=== PATIENT | male | born 1970 | race Asian ===

== ENCOUNTER → 2018-10-24 08:10 | Outpatient (CLI) | payer OTHER, SELFPAY ==
--- NOTE | 2018-10-24 | DI.MRI.S_ITS ---
PROCEDURE: MR ANKLE RT WO CON INDICATIONS: PAIN IN RIGHT ANKLE TECHNIQUE: Noncontrast sagittal T1 spin echo and T2 fast spin echo with fat saturation, axial proton density fast spin echo and T2 fast spin echo with fat saturation, coronal T1 spin echo and T2 fast spin echo with fat saturation through the ankle/hindfoot. COMPARISON: None. FINDINGS: Image quality: Excellent. Bones and joints: No bone marrow contusions or fractures. Type II accessory navicular bone noted. Degenerative changes noted at the accessory navicular bone synchondrosis. No hindfoot coalitions. No osteochondral injuries of the talar dome. Tibiotalar joint effusion is noted. Plantar calcaneal bone spurring is noted. Mild dorsal midfoot bone spurring noted.. Medial structures: The posterior tibialis, flexor digitorum longus, and flexor hallucis longus tendons are intact. The posterior tibial neurovascular bundle appears normal within the tarsal tunnel, without extrinsic mass effect. The deep layer (anterior and posterior tibiotalar ligaments) and superficial layer (tibionavicular, tibiospring, and tibiocalcaneal ligaments) of the deltoid ligament appear normal. The spring ligament components (superomedial calcaneonavicular, medioplantar oblique calcaneonavicular, and inferoplantar longitudinal ligaments) are intact. Lateral structures: The anterior talofibular, calcaneofibular, and posterior talofibular ligaments appear intact. More superiorly, the anterior and posterior tibiofibular ligaments appear intact, as is the intermalleolar ligament. The tibiofibular syndesmosis is normal in width at 2 mm or less. The peroneus longus and brevis tendons demonstrate normal location. The peroneal longus tendon is slightly thickened with mildly increased internal signal compatible with mild tendinosis. Adjacent bony peroneal tubercle and retrotrochlear prominence are normal in size. The sinus tarsi demonstrates normal fatty signal, without edema, fibrosis, or cyst formation. Visualized sinus tarsi components (cervical ligament, interosseous talocalcaneal ligament, roots of the inferior extensor retinaculum) appear normal. The calcaneonavicular and calcaneocuboid components of the bifurcate ligament appear intact. The dorsal calcaneocuboid ligament appears intact. Edema is noted in the lateral ankle soft tissues. Anterior structures: The tibialis anterior, extensor hallucis longus, and extensor digitorum longus tendons appear intact. The dorsal talonavicular ligament appears intact. Posterior and plantar structures: Achilles tendon is intact. Medial and lateral bands of the plantar fascia are of normal thickness. No abductor digiti quinti muscle atrophy to suggest Elizabeth neuropathy. IMPRESSION: 1. Nonspecific tibiotalar joint effusion. 2. Mild peroneal longus tendinosis. 3. 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 4. No ligament or tendon tear. Dictated by: Brandi Atwood MD, PhD on 10/24/2018 at 11:44 Approved by: Brandi Atwood MD, PhD on 10/25/2018 at 10:36
== END ==
PROVIDERS: Visit Provider Physician Assistant
DX: M25.571 Pain in right ankle and joints of right foot (principal); M25.471 Effusion, right ankle
CPT/HCPCS: 73721

== ENCOUNTER → 2020-06-17 13:30 | Outpatient (CLI) | payer OTHER, SELFPAY ==
[2020-06-17 14:59] LABS: Cholesterol 249 mg/dL (140-199); HDL Cholesterol 31 mg/dL (40-60); Triglycerides 467 mg/dL (35-150)
== END ==
PROVIDERS: PCP Student in an Organized Health Care Education/Training Program; Referring Provider Student in an Organized Health Care Education/Training Program; Visit Provider Student in an Organized Health Care Education/Training Program
DX: E78.5 Hyperlipidemia, unspecified (principal)
CPT/HCPCS: 36415; 80061

== ENCOUNTER → 2020-07-31 10:49 | Outpatient (CLI) | payer OTHER, SELFPAY ==
[2020-07-31 12:56] LABS: Cholesterol 188 mg/dL (140-199); HDL Cholesterol 33 mg/dL (40-60); LDL Cholesterol Calculated 114 mg/dL (<100); Triglycerides 206 mg/dL (35-150)
== END ==
PROVIDERS: PCP Student in an Organized Health Care Education/Training Program; Referring Provider Student in an Organized Health Care Education/Training Program; Visit Provider Student in an Organized Health Care Education/Training Program
DX: K64.9 Unspecified hemorrhoids (principal); E78.2 Mixed hyperlipidemia; Z80.0 Family history of malignant neoplasm of digestive organs
CPT/HCPCS: 36415; 80061

== ENCOUNTER → 2021-11-04 12:49 | Outpatient (CLI) | payer OTHER, SELFPAY ==
--- NOTE | 2021-11-04 12:51 | DI.RAD.S_ITS ---
PROCEDURE: XR WRIST LT MIN 3V INDICATIONS: wrist pain extending up the arm, L>R TECHNIQUE: 4 views of the wrist were acquired. COMPARISON: None. FINDINGS: Bones: No fractures or dislocations. The ulnar styloid process is absent possibly related to osseous erosion. Scaphoid view: Scaphoid is intact. Soft tissues: No suspicious soft tissue calcifications. IMPRESSION: No fracture. No acute osseous lesion. If symptoms and/or clinical suspicion for pathology persists, further assessment with repeat radiographs (7-10 days) or advanced imaging (e.g. CT, MRI or bone scan) should be considered. Dictated by: Brandi Atwood MD, PhD on 11/04/2021 at 15:09 Approved by: Brandi Atwood MD, PhD on 11/04/2021 at 15:10
--- NOTE | 2021-11-04 12:51 | DI.RAD.S_ITS ---
PROCEDURE: XR WRIST RT MIN 3V INDICATIONS: wrist pain extending up the arm, L>R TECHNIQUE: 4 views of the wrist were acquired. COMPARISON: None. FINDINGS: Bones: No fractures or dislocations. No suspicious bony lesions. Scaphoid view: Scaphoid is intact. Soft tissues: No suspicious soft tissue calcifications. IMPRESSION: No fracture. No acute osseous lesion. If symptoms and/or clinical suspicion for pathology persists, further assessment with repeat radiographs (7-10 days) or advanced imaging (e.g. CT, MRI or bone scan) should be considered. Dictated by: Brandi Atwood MD, PhD on 11/04/2021 at 15:14 Approved by: Brandi Atwood MD, PhD on 11/04/2021 at 15:14
== END ==
PROVIDERS: PCP Student in an Organized Health Care Education/Training Program; Referring Provider Family Medicine; Visit Provider Family Medicine
DX: G56.03 Carpal tunnel syndrome, bilateral upper limbs (principal)
CPT/HCPCS: 73110

== ENCOUNTER → 2022-01-09 10:28 | Outpatient (CLI) | payer OTHER, SELFPAY ==
[2022-01-09 11:08] LABS: COVID19 -Nasal RAPID Negative (Negative)
== END ==
PROVIDERS: PCP Student in an Organized Health Care Education/Training Program; Visit Provider Surgery
DX: Z20.822 Contact with and (suspected) exposure to COVID-19 (principal); Z01.812 Encounter for preprocedural laboratory examination
CPT/HCPCS: 87635; C9803

== ENCOUNTER 2022-01-10 11:18 | Day surgery (SDC) | payer OTHER, SELFPAY ==
[2022-01-10 11:33] VITALS: BMI 26.6
[2022-01-10 11:44] VITALS: BP 117/79; PULSE 80; RESP 16; TEMP 35.7; O2SAT 96
[2022-01-10] MEDS: LACTATED RINGERS 1,000 ML 200 ML IV (11:47)
--- NOTE | 2022-01-10 12:11 | PM.HP.1 ---
History of Present Illness History of Present Illness Date Patient Seen: 01/10/22 Time Patient Seen: 12:12 Chief complaint: SDC Narrative: The patient presents for colorectal screening. They have never had any previous examination for such. No personal or family history of colon cancer. On further history denies any recent gastrointestinal symptoms. No nausea, vomiting, abdominal pain, loss of appetite, unexplained weight loss, change in bowel habits, diarrhea, constipation, melena, hematochezia, or bright red blood per rectum. Patient History Medical History Cataracts, bilateral (~2008) Chicken pox (~1979) DIETARY SERVICES MANAGER (central serous retinopathy) (~2008) Deviated septum (~1997) Fractures (~1988) Headache (~2002) Hemorrhoid History of herpes zoster (~2016) Lumbosacral strain (~2009) Recurrent sinusitis (~2012) Right ankle sprain Sleep apnea (~2014) Surgical History Anesthesia Barn[place] teeth extracted (~1991) Family & Social History Family History Father History of heart disease Hyperlipidemia Mother Cancer Diabetes mellitus Hypertension Hyperlipidemia Grandfather History of heart disease Hypertension Grandfather Cancer Grandmother Diabetes mellitus Social History: household members spouse Tobacco & Substance use: Smoking Status Former smoker alcohol intake never Substance Use Type does not use Meds Home Medications and Allergies Home Medications Medication Instructions Recorded Confirmed Type naproxen 500 mg tablet 500 mg PO BID PRN pain #90 tabs 08/15/21 01/10/22 Rx simvastatin 40 mg tablet 40 mg PO BEDTIME #90 tabs 12/20/21 01/10/22 Rx Allergies Allergy/AdvReac Type Severity Reaction Status Date / Time No Known Drug Allergies Allergy Verified 01/10/22 11:32 Exam Vital Signs (past 8 hours): - 01/10/22 11:44 Temperature 96.2 F L Pulse Rate 80 Respiratory Rate 16 Blood Pressure 117/79 Pulse Oximetry 96 Oxygen Delivery Method Room Air Oxygen Delivery Method Room Air Narrative Exam Narrative: General adult male alert oriented no acute distress Chest nonlabored respiration Extremities warm well perfused Assessment & Plan Assessment & Plan narrative: The patient requires colorectal screening and colonoscopy is recommended. Technical details were discussed. Risks, benefits, alternatives explained. Risks including but not limited to myocardial infarction, aspiration, bleeding, pain, missed lesion, incomplete examination, need for further radiographic studies, colonic perforation, and need for major abdominal surgery were discussed. All questions were answered to their satisfaction, and they are in agreement with this plan. Time Spent With Patient Critical Care time: I spent a total of [] minutes of critical care time on this patient's care today; this time is exclusive of procedural time.
[2022-01-10] MEDS: MIDAZOLAM 5 MG/5 ML VIAL 4 MG IV (12:20)
[2022-01-10] MEDS: fentaNYL 250 MCG/5 ML INJ 100 MCG IV (12:20)
--- NOTE | 2022-01-10 12:37 | PM.OP.COLON ---
Operative Date/Time/Diagnoses Date of procedure: 01/10/22 Time of procedure: 12:37 Pre-op diagnosis: Screening colonoscopy Post-op diagnosis: same Procedure & Clinicians Study performed: Colonoscopy Same procedure as scheduled: Yes Indications: Screening Surgeon: Sohail Vargas Procedure Notes Procedure in detail: Medications: Conscious sedation using 4mg IV midazolam and 100mcg IV of fentanyl The history and physical was performed/updated and the patient is ASA class is 2. The procedure was discussed in detail with the patient. Potential risks complications including infection, bleeding, missed diagnosis, perforation, need for surgery, and were explained. Their questions were answered and informed consent was obtained. Patient was brought to the procedure room and placed standard monitoring equipment. The patient's vital signs were monitored continuously throughout the entire procedure. Prior to starting time-out was performed. The patient was placed in the left lateral recumbent position. Procedural sedation was administered. Examination began with a thorough inspection of the perianal area there was no evidence of fissures, fistulae, external hemorrhoids or cutaneous malignancy. The colonoscopy scope was then placed into the anal canal and was advanced to the cecum, which was identified by the ileocecal valve, the appendiceal orifice and the confluence of the taenia. The scope was then slowly withdrawn examining colon thoroughly in all directions, irrigating it of any residual stool. FINDINGS 1. Moderate diverticulosis 2. Internal hemorrhoids 3. No masses or polyps The patient tolerated the procedure well. They will be discharged once criteria are met. The prep was of good/excellent quality. The withdrawl time was * minutes. The sedation time was * minutes. Specimen(s): none sent Complications: none Impression: Normal colonoscopy Post-procedure Recommendations: High fiber diet Disposition: same day surgery
[2022-01-10 12:40] VITALS: BP 107/65; PULSE 70; RESP 15; TEMP 36.1; O2SAT 97
[2022-01-10 12:45] VITALS: BP 115/76; PULSE 79; RESP 14; O2SAT 97
[2022-01-10 12:50] VITALS: BP 112/78; PULSE 70; RESP 13; O2SAT 98
[2022-01-10 12:51] VITALS: BP 113/84; PULSE 66; RESP 14; O2SAT 97
== END 2022-01-10 13:25 | disposition home or self-care (01) ==
PROVIDERS: PCP Student in an Organized Health Care Education/Training Program; Referring Provider Surgery; Visit Provider Surgery
PROC: 0DJD8ZZ Inspection of Lower Intestinal Tract, Via Natural or Artificial Opening Endoscopic (ICD-10-PCS; CPT 45378; principal; 2022-01-10 12:45)
DX: Z12.11 Encounter for screening for malignant neoplasm of colon (principal); K57.30 Diverticulosis of large intestine without perforation or abscess without bleeding; K64.8 Other hemorrhoids
CPT/HCPCS: 45378; J2250; J3010

== ENCOUNTER → 2022-06-09 16:32 | Outpatient (CLI) | payer OTHER, SELFPAY ==
--- NOTE | 2022-06-09 16:38 | DI.RAD.S_ITS ---
PROCEDURE: XR CERVICAL SPINE 2V OR 3V INDICATIONS: possible radiculopathy TECHNIQUE: Three view(s) of the cervical spine were acquired. COMPARISON: None. FINDINGS: Bones: No fractures or dislocations to the C7 level. Trace anterolisthesis C5-6. Mild disc height loss posteriorly at C4-5 and C6-7. Small endplate spurs and uncovertebral joint hypertrophy at C6-7. There is a anterior bridging osteophyte at C2-3. Mild left-sided facet hypertrophy at C4-5. The lateral masses of C1 appear intact on the odontoid view. No suspicious bony lesions. Soft tissues: No prevertebral soft tissue swelling. IMPRESSION: 1. Mild disc, endplate, and facet joint changes as described. 2. No evidence of cervical spine injury. Dictated by: Sophia Aguiar M.D. on 06/09/2022 at 18:09 Approved by: Sophia Aguiar M.D. on 06/09/2022 at 18:11
--- NOTE | 2022-06-09 16:38 | DI.RAD.S_ITS ---
PROCEDURE: XR THORACIC SPINE 3V INDICATIONS: possible radiculopathy, no injury TECHNIQUE: 3 views of the thoracic spine were acquired. COMPARISON: None. FINDINGS: Bones: No fractures or dislocations. Disc spaces are normally maintained. No suspicious bony lesions. Eleven pairs of ribs are noted, and appear intact where visualized. Soft tissues: No paravertebral stripe thickening. IMPRESSION: 1. No vertebral body fractures. 2. No focal disc height loss visible. Dictated by: Sophia Aguiar M.D. on 06/09/2022 at 18:08 Approved by: Sophia Aguiar M.D. on 06/09/2022 at 18:09
== END ==
PROVIDERS: PCP Student in an Organized Health Care Education/Training Program; Referring Provider Student in an Organized Health Care Education/Training Program; Visit Provider Student in an Organized Health Care Education/Training Program
DX: M54.2 Cervicalgia (principal); M54.6 Pain in thoracic spine
CPT/HCPCS: 72040; 72072

== ENCOUNTER → 2022-12-13 07:11 | Outpatient (CLI) | payer OTHER, SELFPAY ==
[2022-12-13 08:46] LABS: Add Manual Diff / Slide Review NO; Basophils Absolute Auto 100 /uL (0-100); Eosinophils Absolute Auto 100 /uL (0-450); Eosinophils Percent Auto 2.1 % (2-4); Hematocrit 45.2 % (41-53); Hemoglobin 15.3 g/dL (13.5-17.5); Lymphocytes Absolute Auto 1700 /uL (1100-4500); Lymphocytes Percent Auto 27.4 % (25-40); Mean Corpuscular HGB Conc 33.8 % (30-36); Mean Corpuscular Hemoglobin 29.5 PG (26-34); Mean Corpuscular Volume 87.2 fL (80-100); Monocytes Absolute Auto 500 /uL (0-900); Monocytes Percent Auto 7.7 % (3-14); Neutrophils Absolute Auto 3800 /uL (1500-7000); Neutrophils Percent Auto 61.8 % (50-75); Platelet Count 257 X10^3/uL (150-400); Red Blood Cell Count 5.19 X10^6/uL (4.5-5.9); Red Cell Distribution Width 12.5 % (11.6-14.8); White Blood Cell Count 6.2 X10^3/uL (4.5-11.0)
[2022-12-13 08:53] LABS: Alanine Aminotransferase 41 IU/L (<50); Albumin 3.9 g/dL (3.5-5.0); Albumin Globulin Ratio 1.4 (1.0-2.8); Alkaline Phosphatase 73 U/L (38-126); Aspartate Aminotransferase 40 IU/L (17-59); BUN Creatinine Ratio 14.6 (6-22); Bilirubin Total 0.5 mg/dL (0.2-1.3); Blood Urea Nitrogen 12 mg/dL (9-20); Calcium 8.9 mg/dL (8.4-10.2); Carbon Dioxide 27 mmol/L (22-32); Chloride 104 mmol/L (98-107); Cholesterol 149 mg/dL (140-199); Estimated Glomerular Filt Rate > 60 mL/min (>60); Globulin 2.7 g/dL (1.7-4.1); Glucose 102 mg/dL (70-100); HDL Cholesterol 29 mg/dL (40-60); HEMOLYSIS < 15 (0-50); LDL Cholesterol Calculated 96 mg/dL (<100); Potassium 4.2 mmol/L (3.4-5.1); Sodium 138 mmol/L (137-145); Total Protein 6.6 g/dL (6.3-8.2); Triglycerides 120 mg/dL (35-150)
[2022-12-13 08:54] LABS: Appearance Urine UA CLEAR; Bilirubin Urine UA NEGATIVE (NEGATIVE); Color Urine UA YELLOW; Glucose Urine UA NEGATIVE (Negative); Ketones Urine UA NEGATIVE (NEGATIVE); Leukocyte Esterase Urine UA NEGATIVE (NEGATIVE); Nitrite Urine UA NEGATIVE (Negative); Occult Blood Urine UA NEGATIVE (Negative); Protein Urine UA NEGATIVE (Negative); Specific Gravity Urine UA 1.015 (1.000-1.035); Urobilinogen Urine UA 0.2 E.U./dL (0.2)
[2022-12-13 08:56] LABS: High Sensitivity CRP - Cardiac < 0.3 mg/L (1.0-3.0)
[2022-12-13 09:06] LABS: Bacteria Urine Occasional (0-1); RBC Urine 1-5/HPF (0-5/HPF); WBC Urine 1-5/HPF (0-5/HPF)
[2022-12-13 09:07] LABS: Culture Indicated Urine Cult Not Indicated; Squamous Epithelial Cell Urine 0-1 /HPF (0-5/HPF)
== END ==
PROVIDERS: PCP Pediatrics; Referring Provider Pediatrics; Visit Provider Pediatrics
DX: E78.5 Hyperlipidemia, unspecified; Z80.0 Family history of malignant neoplasm of digestive organs; Z12.5 Encounter for screening for malignant neoplasm of prostate
CPT/HCPCS: 36415; 80053; 80061; 81001; 85025; 86140; G0103

== ENCOUNTER → 2023-06-21 15:11 | Outpatient (CLI) | payer OTHER, SELFPAY | LOC: LAB 15:12 | PROVIDERS: PCP Family Medicine; Referring Provider Family Medicine; Visit Provider Family Medicine | DX: M25.561 Pain in right knee (principal); M25.562 Pain in left knee; M25.461 Effusion, right knee; M25.462 Effusion, left knee | CPT/HCPCS: 36415; 84550 ==

== ENCOUNTER → 2024-01-03 11:13 | Outpatient (CLI) | payer OTHER, SELFPAY ==
--- NOTE | 2024-01-03 11:16 | DI.RAD.S_ITS ---
PROCEDURE: XR HAND LT MIN 3V INDICATIONS: bilateral thumb pain TECHNIQUE: 3 views of the hand acquired. COMPARISON: None. FINDINGS: Bones: No acute fractures or dislocations. Carpal bones are normally aligned. No suspicious bony lesions. Moderate to severe joint space narrowing of the 1st carpometacarpal joint. There is mild joint space narrowing and small marginal osteophytes at the 2nd and 3rd metacarpophalangeal joints. Mild joint space narrowing in the interphalangeal joints throughout the fingers. Soft tissues: No suspicious soft tissue calcifications. IMPRESSION: Moderate to severe 1st carpometacarpal osteoarthrosis. Approved by: Rogers Amin M.D. on 01/04/2024 at 8:58
--- NOTE | 2024-01-03 11:16 | DI.RAD.S_ITS ---
PROCEDURE: XR HAND RT MIN 3V INDICATIONS: bilateral thumb pain TECHNIQUE: 3 views of the hand acquired. COMPARISON: None. FINDINGS: Bones: No acute fractures or dislocations. Carpal bones are normally aligned. No suspicious bony lesions. Moderate degenerative changes at the 1st carpometacarpal and 1st metacarpophalangeal joints. Mild scattered degenerative changes in the interphalangeal joints of the fingers and at the 2nd metacarpophalangeal joint. No definite osseous erosion. Soft tissues: No suspicious soft tissue calcifications. IMPRESSION: Moderate osteoarthrosis at the 1st carpometacarpal and 1st metacarpophalangeal joints. Approved by: Rogers Amin M.D. on 01/04/2024 at 9:11
--- NOTE | 2024-01-03 11:16 | DI.RAD.S_ITS ---
PROCEDURE: XR KNEE LT 3V INDICATIONS: bilateral knee pain TECHNIQUE: 3 views of the knee were acquired. COMPARISON: None. FINDINGS: Bones: No fractures or dislocations. No suspicious bony lesions. Mild tricompartmental marginal osteophytes are seen associated with relatively mild joint space narrowing. Small suprapatellar enthesophyte. Soft tissues: No joint effusion. No suspicious soft tissue calcifications. IMPRESSION: Mild tricompartmental osteoarthrosis. Approved by: Rogers Amin M.D. on 01/04/2024 at 9:11
--- NOTE | 2024-01-03 11:16 | DI.RAD.S_ITS ---
PROCEDURE: XR KNEE RT 3V INDICATIONS: bilateral knee pain TECHNIQUE: 3 views of the knee were acquired. COMPARISON: None. FINDINGS: Bones: No fractures or dislocations. No suspicious bony lesions. Mild marginal osteophyte formation is seen at the medial and lateral femorotibial compartments and the patellofemoral compartment associated with mild joint space narrowing. Small suprapatellar enthesophyte. Soft tissues: No joint effusion. No suspicious soft tissue calcifications. IMPRESSION: Mild tricompartmental osteoarthrosis. Approved by: Rogers Amin M.D. on 01/04/2024 at 9:12
[2024-01-03 12:20] LABS: Add Manual Diff / Slide Review NO; Basophils Absolute Auto 100 /uL (0-100); Basophils Percent Auto 1.1 % (0-2); Eosinophils Absolute Auto 100 /uL (0-450); Eosinophils Percent Auto 1.5 % (2-4); Hematocrit 46.3 % (41-53); Hemoglobin 15.6 g/dL (13.5-17.5); Lymphocytes Absolute Auto 1800 /uL (1100-4500); Lymphocytes Percent Auto 25.7 % (25-40); Mean Corpuscular HGB Conc 33.7 % (30-36); Mean Corpuscular Hemoglobin 29.6 PG (26-34); Mean Corpuscular Volume 87.7 fL (80-100); Monocytes Absolute Auto 600 /uL (0-900); Monocytes Percent Auto 8.5 % (3-14); Neutrophils Absolute Auto 4500 /uL (1500-7000); Neutrophils Percent Auto 63.2 % (50-75); Platelet Count 283 X10^3/uL (150-400); Red Blood Cell Count 5.28 X10^6/uL (4.5-5.9); Red Cell Distribution Width 12.7 % (11.6-14.8); White Blood Cell Count 7.1 X10^3/uL (4.5-11.0)
[2024-01-03 12:57] LABS: Alanine Aminotransferase 46 IU/L (<50); Albumin 4.4 g/dL (3.5-5.0); Albumin Globulin Ratio 1.5 (1.0-2.8); Alkaline Phosphatase 77 U/L (38-126); Aspartate Aminotransferase 46 IU/L (17-59); BUN Creatinine Ratio 10.8 (6-22); Bilirubin Total 0.8 mg/dL (0.2-1.3); Blood Urea Nitrogen 10 mg/dL (9-20); Carbon Dioxide 28 mmol/L (22-32); Chloride 105 mmol/L (98-107); Cholesterol 163 mg/dL (140-199); Estimated Glomerular Filt Rate > 60 mL/min (>60); Globulin 2.9 g/dL (1.7-4.1); Glucose 96 mg/dL (70-100); HDL Cholesterol 33 mg/dL (40-60); HEMOLYSIS < 15 (0-50); LDL Cholesterol Calculated 97 mg/dL (<100); Potassium 4.3 mmol/L (3.4-5.1); Sodium 138 mmol/L (137-145); Total Protein 7.3 g/dL (6.3-8.2); Triglycerides 167 mg/dL (35-150); Uric Acid 6.9 mg/dL (3.5-8.5)
[2024-01-03 13:21] LABS: Prostate Specific Antigen Scrn 0.447 ng/mL (0.1-4.0)
[2024-01-03 13:23] LABS: TSH w/ Reflex to FT4 0.73 uIU/mL (0.47-4.68)
[2024-01-05 06:10] LABS: Apolipoprotein B 93 mg/dL (<90)
== END ==
PROVIDERS: PCP Family Medicine; Referring Provider Family Medicine; Visit Provider Family Medicine
DX: G89.29 Other chronic pain (principal); M25.561 Pain in right knee; M25.562 Pain in left knee; M79.644 Pain in right finger(s); M79.645 Pain in left finger(s); G56.03 Carpal tunnel syndrome, bilateral upper limbs; M25.569 Pain in unspecified knee; E78.2 Mixed hyperlipidemia; Z12.5 Encounter for screening for malignant neoplasm of prostate
CPT/HCPCS: 36415; 73130; 73562; 80053; 80061; 82172; 84443; 84550; 85025; G0103

== ENCOUNTER 2024-02-28 13:45 | Outpatient (RCR) | payer OTHER, SELFPAY ==
--- NOTE | 2024-02-22 14:15 | OT.OP.EVAL ---
Visit Care Team Role Provider Type Luis Alfredo Turner MD Attending Provider Physician Family Provider Primary Care Provider Referring Provider Specialty: Family Practice Address: [address] [place] [address], [facility] Email: [email or web address] Occupational Therapy Initial Evaluation OT Outpatient Adult Evaluation Start: 02/26/24 09:17 Freq: Status: Active Protocol: Document 02/22/24 14:15 AMS (Rec: 02/26/24 09:34 AMS [id number]) General Information - Adult Visit Number 1/ Plan of Care Dates 02/22/24 - 04/04/24 Insurance Information Family Health Plan; PCP Luis Alfredo Turner MD; auth x 6 visits Visit Start Time 11:15 Visit Stop Time 12:00 Treatment Setting Outpatient Care Note Type Initial Evaluation Referring Physician Luis Alfredo Turner MD Reason for Referral Bilateral OA Identification Confirmed Yes Identification Confirmed By Self Goals Correction Goals 1. Leland will be modified independent with home exercise program utilizing provided written and/or visual instructions as needed. 2. Leland will be able to verbalize understanding of basic joint protection principles. Assessment/Plan Treatment Assessment Leland is 53 y.o.; right hand dominant; referred to outpatient OT by PCP, Luis Alfredo Turner MD, secondary to bilateral OA. Medical history is significant for arthritis, back/jaw pain, headaches, and bilateral carpal tunnel syndrome. He reported injury to his R distal UE in high school; thus, he ended up using his left hand more at that time; subsequently, he utilizes both hands quite effectively to complete daily/ work tasks. Leland is taking a medication for his high cholesterol; he is also taking a medication for pain/ inflammation (Naproxen). There is history of receiving outpatient services for bilateral hand pain 2 to 3 years ago at a clinic located in [place], [place]. He completed the whole body Pain Assessment Grid; he indicated 4 out of 10 on the pain scale relative to volar base of bilateral thumbs. L thumb/hand pain > R thumb/hand pain. He has a hand massager; he also has a therapy device w/ red/ blue light (essentially is heat therapy). 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 He has a referral for outpatient PT as well (knee). Denied use of splints/braces. Outpatient OT to address basic joint protection principles, discuss conservative methods of pain and swelling management, and light resistance strength training as tolerated. Home Exercise Program 02/22/24 = Instructed in bilateral self-myofascial thumb adductor release; rec hold for 20-30 sec and then switch. Rec daily and/or as needed. Discussed basic joint protection principles; avoiding sustained pinch, repetitive resisted pinch, and positions of joint deformity. Length of treatment (weeks) 6 Plan of Care Start Date 02/22/24 Plan of Care End Date 04/04/24 Treatment Frequency Once a Week Therapeutic Contents Active Range of Motion, Adaptive Equipment Education, Client Education,Functional Activities,Home Exercise Program,Joint Protection, Manual Therapy,Education, Neurodevelopment Treatment, Neuromuscular Re-Education, Self-Care,Stretching/ Flexibility Activities, Therapeutic Activities, Therapeutic Exercises, Modalities Modalities As Needed,As Prescribed Additional Types of Modalities Heat/Ice/Contrast Baths/ Paraffin/Ultrasound
--- NOTE | 2024-02-28 14:33 | OT.OP.DC ---
Visit Care Team Role Provider Type Luis Alfredo Turner MD Attending Provider Physician Family Provider Primary Care Provider Referring Provider Address: [address] [place] [address], [id number] Email: [email or web address] OT Outpatient OT Outpatient Adult Evaluation Start: 02/26/24 09:17 Freq: Status: Active Protocol: Document 02/22/24 14:15 AMS (Rec: 02/26/24 09:34 AMS [id number]) General Information - Adult Visit Information Visit Number / Plan of Care Dates 02/22/24 - 04/04/24 Insurance Information Family Health Plan; PCP Luis Alfredo Turner MD; auth x 6 visits Session Time Visit Start Time 11:15 Visit Stop Time 12:00 Setting Treatment Setting Outpatient Care Visit Type Note Type Initial Evaluation Referral Referring Physician Luis Alfredo Turner MD Reason for Referral Bilateral OA Identification Identification Confirmed Yes Identification Confirmed By Self Goals Technical Support Internship Goals Technical Support Internship Goals 1. Leland will be modified independent with home exercise program utilizing provided written and/or visual instructions as needed. 2. Leland will be able to verbalize understanding of basic joint protection principles. Assessment/Plan Assessment Treatment Assessment Leland is 53 y.o.; right hand dominant; referred to outpatient OT by PCP, Luis Alfredo Turner MD, secondary to bilateral OA. Medical history is significant for arthritis, back/jaw pain, headaches, and bilateral carpal tunnel syndrome. He reported injury to his R distal UE in high school; thus, he ended up using his left hand more at that time; subsequently, he utilizes both hands quite effectively to complete daily/ work tasks. Leland is taking a medication for his high cholesterol; he is also taking a medication for pain/ inflammation (Naproxen). There is history of receiving outpatient services for bilateral hand pain 2 to 3 years ago at a clinic located in [place], [place]. He completed the whole body Pain Assessment Grid; he indicated 4 out of 10 on the pain scale relative to volar base of bilateral thumbs. L thumb/hand pain > R thumb/hand pain. He has a hand massager; he also has a therapy device w/ red/ blue light (essentially is heat therapy). 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 He has a referral for outpatient PT as well (knee). Denied use of splints/braces. Outpatient OT to address basic joint protection principles, discuss conservative methods of pain and swelling management, and light resistance strength training as tolerated. Home Exercise Program 02/22/24 = Instructed in bilateral self-myofascial thumb adductor release; rec hold for 20-30 sec and then switch. Rec daily and/or as needed. Discussed basic joint protection principles; avoiding sustained pinch, repetitive resisted pinch, and positions of joint deformity. Plan Length of treatment (weeks) 6 Plan of Care Start Date 02/22/24 Plan of Care End Date 04/04/24 Treatment Frequency Once a Week Therapeutic Contents Active Range of Motion, Adaptive Equipment Education, Client Education,Functional Activities,Home Exercise Program,Joint Protection, Manual Therapy,Education, Neurodevelopment Treatment, Neuromuscular Re-Education, Self-Care,Stretching/ Flexibility Activities, Therapeutic Activities, Therapeutic Exercises, Modalities Modalities As Needed,As Prescribed Additional Types of Modalities Heat/Ice/Contrast Baths/ Paraffin/Ultrasound Functional Wrist/Hand Scan Hand Side Sensory Assessment Sensory Profile2 OT Outpatient Treatment Note - Adult Start: 02/26/24 09:17 Freq: Status: Active Protocol: Document 02/28/24 14:23 [facility] (Rec: 02/28/24 14:32 AMS [id number]) OT Outpatient Adult Treatment Note Session Time Visit Start Time 13:45 Visit Stop Time 15:15 Visit Information Visit Number 2/6 Plan of Care Dates 02/22/24 - 04/04/24 Insurance Information Family Health Plan; PCP Luis Alfredo Turner MD; auth x 6 visits Setting Treatment Setting Outpatient Care Visit Type Note Type Discharge Summary General Information General Information Leland is 53 y.o.; right hand dominant; referred to outpatient OT by PCP, Luis Alfredo Turner MD, secondary to bilateral OA. Medical history is significant for arthritis, back/jaw pain, headaches, and bilateral carpal tunnel syndrome. - Subjective Identification Type Name - Objective Objective Measurements Please refer to below for progress towards meeting established OT goals: Technical Support Internship Goals GOALS MET 02/28/24 Leland will be modified independent with home exercise program utilizing provided written and/or visual instructions as needed. Leland will be able to verbalize understanding of basic joint protection principles. - Exercises 1 Descriptor Home exercise program. Myofascial release/thumb adductor stretch. Light resistance exercises: thumb abduction, thumb extension w/ use of single rubberband. Written and visual instructions were provided for myofascial thumb adductor release/stretch, thumb abduction/thumb extension w/ light resistance w/ single rubberband, and tendon glide exercises. Also instructed in use of 2 small balls/practice golf balls/golf balls in-hand manipulation exercises. Also recommended looking at [employer] website. - Assessment Assessment of Improvement Von denied need for additional visits; he denied questions regarding home exercise program. Written/visual instructions for home exercise program to be scanned into EMR. Rec following-up w/ PT in re: R knee rehab. - Plan Therapy Recommendations Discharge from Occupational Therapy
== END 2024-03-04 12:58 | disposition home or self-care (01) ==
LOC: OT 13:45
PROVIDERS: Family Provider Family Medicine; PCP Family Medicine; Referring Provider Family Medicine; Visit Provider Family Medicine
DX: M19.041 Primary osteoarthritis, right hand (principal); M19.042 Primary osteoarthritis, left hand
CPT/HCPCS: 97110; 97165

== ENCOUNTER 2024-05-01 13:00 | Outpatient (RCR) | payer OTHER, SELFPAY ==
--- NOTE | 2024-03-17 14:51 | PT.OIE ---
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) Dermatitis Deviated septum (~1997) Family history of coronary artery disease Fractures (~1988) Headache (~2002) Hemorrhoid History of herpes zoster (~2016) Lumbosacral strain (~2009) Recurrent sinusitis (~2012) Right ankle sprain Sleep apnea (~2014) Past Surgical History (Last Reviewed 06/09/22 @ 19:36 by Rakel Herrera PA-C) Anesthesia [place] teeth extracted (~1991) Visit Care Team Role Provider Type Luis Alfredo Turner MD Attending Provider Physician Family Provider Primary Care Provider Referring Provider Specialty: Family Practice Address: [address] [place] [address], [facility] Email: [email or web address] Physical Therapy Initial Evaluation PT-OP-A Visit Information Start: 03/17/24 09:55 Freq: Status: Active Protocol: Document 03/17/24 11:29 NM (Rec: 03/17/24 12:27 NM [id number]) Out-Patient Physical Therapy Visit Information Visit Information Visit Type Initial Evaluation Visit Note 6 visits approved initially Visit Start Time 11:32 Visit Stop Time 12:15 Visit Number 1 Evaluation Information Evaluation Date 03/17/24 Precautions Precautions PMH arthritis and back pain PT-OP-B Current Condition Start: 03/17/24 09:55 Freq: Status: Active Protocol: Document 03/17/24 11:29 NM (Rec: 03/17/24 12:27 NM [id number]) Current Condition History of Current Condition Onset Date chronic History of Current Condition Pt presents with B knee pain ( R>L). 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 Pt reports at least 8 years since has been out of active duty. He reports that he has not been active with exercise, but states hasn't been as active overall since pandemic. Reports pain with working out , yard work, knee flexion, sitting, stairs. Pt reports he slept wrong, so his back currently hurts; however, he states that his back does not normally hurt. Drove a lot this weekend, bothers him today. He reports no numbness or tingling in BLE; however, he does report mild occasional burning to R lateral ankle. Has not been referred to ortho . 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 PT-OP-C Subjective Start: 03/17/24 09:55 Freq: Status: Active Protocol: Document 03/17/24 11:29 NM (Rec: 03/17/24 12:27 NM [id number]) OP-PT Subjective Patient Comments Patient Comments pt consents to participate in initial evaluation Patient Questionnaires Lower Extremity Functional Scale LEFS Score 50/80 OP-PT Pain Assessment Location back Pain Location Details lumbar spine Intensity 6 Scale Used Numeric (0 - 10) Description Aching Frequency Occasional Radiating Location to R lateral hip and ankle Pain Aggravating Factors Position,Changing Position,ADL 's,Activity,Exercise,Standing, Bending,Lifting Pain Alleviating Factors Exercise L knee Pain Location Details medial knee Intensity 1 Scale Used Numeric (0 - 10) Description Aching Description- Other prn 2 Pain Aggravating Factors Activity,Exercise,Standing, Sitting,Walking,Stair Climbing Pain Alleviating Factors Heat,Medication Other Pain Alleviating Factors naproxen, red/blue light therapy R knee Pain Location Details medial knee Intensity 3 Scale Used Numeric (0 - 10) Description Aching,Dull Description- Other prn 5-6 Frequency Frequent Radiating Location worse throughout day Pain Aggravating Factors Exercise,Standing,Sitting, Walking,Stair Climbing Pain Alleviating Factors Heat,Medication Other Pain Alleviating Factors naproxen, red/blue light therapy PT-OP-F Manual Assessment Start: 10/07/24 09:55 Freq: Status: Active Protocol: Document 03/17/24 11:29 NM (Rec: 03/17/24 12:58 NM [id number]) Manual Assessments Soft Tissue Assessment Soft Tissue Mobility Assessment Tightness of B hamstrings and hip flexors, R>L. Increased tightness of B paraspinals Joint Mobility Assessment Joint Mobility Assessment Mild clicking at R knee with tibial rotation Hypomobility of lumbar spine PT-OP-G Mobility & Gait Start: 03/17/24 09:55 Freq: Status: Active Protocol: Document 03/17/24 11:29 NM (Rec: 03/17/24 12:58 NM [id number]) OP Mobility Evaluation Transfers Sit to Stand with hand assist from edge of chair, painful at B knees OP Gait Assessment Gait Gait Assistance Required: Independent Distance (Feet) 150 Gait Deviations General Gait Pattern Antalgic,Flexed Trunk Factors Limiting Gait Function Factors Limiting Gait Function Decreased Activity Tolerance, Decreased Strength,Limited Range of Motion,Pain Comments Gait Comments Wider based gait, mildly antalgic. Demos lack of R knee extension. Stiff trunk PT-OP-J Posture/Palpation/Skin Start: 03/17/24 09:55 Freq: Status: Active Protocol: Document 03/17/24 11:29 NM (Rec: 03/17/24 12:27 NM [id number]) Posture Evaluation Position Standing Head/C-Spine Posture C-Spine Flattened L-Spine Posture Increased Lordosis Shoulder Posture (L) Rounded,(R) Rounded Pelvis Posture Anteriorly Tilted Knee Posture (L) Genu Valgus,(R) Genu Valgus Comments Posture Comments Does not fully extend R knee Palpation Assessment Location lumbar spine Palpation Details Tenderness along paraspinals, R SIJ, and lower lumbar spine. Mild tenderness with PA springing of lumbar spinous processes, more distally near scarum Increased tightness of lumbar paraspinals, hip flexors L knee Palpation Findings Soft Tissue Tightness, Tenderness Palpation Details Tenderness along medial joint line no tenderness along patellar tendon, patella, lateral joint line, tibia, femur, pes anserine R knee Palpation Findings Soft Tissue Tightness, Tenderness Palpation Details Tenderness along medial joint line; more marked than L side Mild tenderness and feeling of distal hamstring tendon thickening no tenderness along patellar tendon, patella, lateral joint line, tibia, femur, pes anserine PT-OP-K Range of Motion Start: 03/17/24 09:55 Freq: Status: Active Protocol: Document 03/17/24 11:29 NM (Rec: 03/17/24 12:27 NM [id number]) Lumbar Spine Range of Motion Lumbar Spine Active Percentage Flexion 75 Extension 100 Rotation Left 100 Rotation Right 100 Lateral Flexion Left 100 Lateral Flexion Right 100 Comments reports burning at R ankle with LF and rotation Hip Goniometric Range of Motion Hip Left Internal Rotation 30 External Rotation 25 Right Internal Rotation 25 External Rotation 25 Comments reproduces back pain Knee Goniometric Range of Motion Knee Left Flexion Active (degrees) 130 Extension Active (degrees) 3 Right Flexion Active (degrees) 125 Extension Active (degrees) 5 PT-OP-L Special Tests Start: 03/17/24 09:55 Freq: Status: Active Protocol: Document 03/17/24 11:29 NM (Rec: 03/17/24 12:27 NM [id number]) Special Tests Lumbar Spine Special Tests Traction Test Results - Comments no change in symptoms Straight Leg Raise Test Results + Comments R, reproduced in low back Slump Test Results + Comments R, reproduced in low back Francis/quadrant Test Results + Comments R sided low back Knee Special Tests Varus Test Results - B Comments 0 and 25 deg flex Valgus Test Results - B Comments 0 and 25 deg flex Thessaly Test Results - B Jammie Test Results - B Emery's Test Results - B PT-OP-M Strength Start: 03/17/24 09:55 Freq: Status: Active Protocol: Document 03/17/24 11:29 NM (Rec: 03/17/24 12:27 NM [id number]) Trunk Strength Trunk Manual Muscle Testing Flexion 4- Good- Extension 4- Good- Rotation Left 4- Good- Rotation Right 4- Good- Lateral Flexion Left 4- Good- Lateral Flexion Right 4- Good- Comments No pain reproduction with resisted testing Hip Strength Hip Manual Muscle Testing Left Flexion (L2) 4 Good Extension (S1) 4- Good- Abduction 4 Good Adduction 4- Good- External Rotation 4- Good- Internal Rotation 4- Good- Right Flexion (L2) 4 Good Extension (S1) 4- Good- Abduction 4 Good Adduction 4 Good External Rotation 4- Good- Internal Rotation 4- Good- Knee Strength Knee Manual Muscle Testing Left Flexion (S2) 4 Good Extension (L3) 4 Good Right Flexion (S2) 4- Good- Extension (L3) 4- Good- Comments reports mild reproduction in knee pain Ankle/Foot Strength Ankle and Foot Manual Muscle Testing Left Dorsiflexion (L4) 4 Good Plantarflexion (S1) 4 Good Right Dorsiflexion (L4) 4- Good- Plantarflexion (S1) 4- Good- PT-OP-Q Treatments Start: 03/17/24 09:55 Freq: Status: Active Protocol: Document 03/17/24 11:29 NM (Rec: 03/17/24 12:58 NM [id number]) Therapeutic Exercises Supine Exercises hamstring/nerve mobilization Supine Exercise Name knee flex and ext Side bilateral Equipment Used towel behind knee Reps/Minutes 30 ea w/ 5 sec breath holds Comments R more restricted than L reports no increase in symptoms bridge Side bilateral Reps/Minutes 15- increased time required for correct execution Comments cued ppt prior to lift, no back pain or knee pain Standing Exercises hip flexor stretch Standing Exercise Name staggered stance Side bilateral Equipment Used with ppt Reps/Minutes 60 ea Comments pain free in knee; R more restricted than L Self-Care/Home Management Treatment Education Patient Education Joint Protection,Pain Management Other Education Educated on continued use of thermotherapy for pain management. Recommended gentle exercise, [id number], for overall activity levels PT-OP-T Assessment and Plan Start: 03/17/24 09:55 Freq: Status: Active Protocol: Document 03/17/24 11:29 NM (Rec: 03/17/24 12:58 NM [id number]) Physical Therapy Assessment Rehab Potential Rehabilitation Potential Good Evaluation Complexity Number of Personal Factors/Comorbidities 1-2 Number of Body Systems Impaired 1-2 Clinical Presentation at Evaluation Stable Impairments Impairments Activity Tolerance,Balance, Functional Activities, Functional Mobility,Gait,Pain, Posture,ROM,Sensation,Soft Tissue Mobility,Strength, Transfers Other Concerns Age Related Concerns PMH arthritis and back pain Barriers to Rehabilitation Pt has busy work schedule and had to cancel several initial appointments following initial evaluation, states likely only able to attend 1x/wk. Pt has limited number of insurance visits approved Goals Four Impairment pain with knee flexion during yard work Admitting Counselor Goal (LTG) Pt will report that he is able to perform yard work with <3/ 10 R knee pain and <2/10 L knee pain in order to demonstrate improved knee flexion AROM and activity tolerance LTG Duration 8 weeks Three Impairment back/knee pain with sitting 60 minutes max with increased pain at work/car Admitting Counselor Goal (LTG) Pt will report that he is able to sit > 60 minutes in order to perform job requirements or drive in his car without increase in B knee LTG Duration 8 weeks Two Impairment B knee extension limited Nursing Home Goal (LTG) Pt will improve R knee flexion > 125 deg and B knee extension <2 deg in order to demonstrate improved TKE for gait, transfers, and ADLs LTG Duration 8 weeks One Impairment not performing HEP or general exercise program Short Term Goal (STG) Pt will report compliance with HEP at least 2-3x/wk in order to maximize progression with PT STG Duration 4 weeks Nursing Home Goal (LTG) Pt will report compliance with HEP at least 3x/wk in order to promote quick transition to maintenance program for improved carryover between PT sessions and after discharge LTG Duration 8 weeks Assessment Summary Assessment Pt is a 53 y.o. male presenting with chronic B knee pain and low back pain. No known MOIs. Pt is being assessed at this time for knee pain, but would benefit from referral for low back pain to address possible radicular symptoms. Pt has had recent imaging of his knee consistent with dx and symptoms. Pt's R knee pain is more symptomatic than L knee pain. Pt has mild limitations in R knee flexion and demonstrates limitations in B knee extension. He has mild limitations in overall hip and knee strength, especially on his R knee and B hip extension. He has limited B hip mobility and tight hamstrings. Pt's knees are tender to palpation along his medial joint lines; however, he does not have positive meniscus testing. He does report B knee clicking, popping and possibly locking. Pt also has symptom exacerbation on his R side with 3D vertebral compression, slump, and straight leg raise ; no change in symptoms with traction. Pt does not provide a clear history of his symptoms or his pain timeline for his knees or his back. PT educated pt on exam findings and plan of care. He has limited insurance visits at this time and a limited schedule due to work/personal life; pt has already canceled several appointments. Depending on progression with PT, pt may benefit from additional assessment of both knees and low back. He would benefit from skilled PT at this time for flexibility, strengthening, balance and proprioceptive, and body mechanics training in order to improve ROM, strength, and activity tolerance to participate in ADLs. Physical Therapy Plan Frequency and Duration Frequency of Treatment 1-2x/wk Duration of treatment (weeks) 8 Plan of Care Start Date 03/17/24 Plan of Care End Date 05/16/24 Therapeutic Interventions Therapeutic Interventions Balance Training,Gait Training ,Home Exercise Program,Joint Mobilizations,Manual Therapy, Neuromuscular Re-education, Orthotic/Prosthetic Management ,Patient/Caregiver Education, Self-Care/Home Management, Sensory Integration,Soft Tissue Mobilization,Taping, Therapeutic Activities, Therapeutic Exercises Modalities Cold Pack/Ice Massage,Electric Stimulation,Hot Packs, Traction- Mechanical, Ultrasound,Vasopneumatic Devices Next Visit Focus/Plan Next Note Type Treatment Note Next Visit Plan Review HEP. Treat knees only but can do global stretching and core/hip strengthening prone hip extension, side steps, LAQ, prone vs standing HSC, glute medius in standing and with squat if tolerated, hip IR staggered stance. stretch quad, HS, hip flexors- be mindful of low back Joint mobilizations to R knee and STM POC: progress to step up stairs, leg press,
--- NOTE | 2024-03-27 16:26 | PT.OTN ---
Current Diagnoses Bilateral primary osteoarthritis of knee (03/27/24) Stiffness of right hip, not elsewhere classified (03/27/24) Stiffness of left hip, not elsewhere classified (03/27/24) Stiffness of right knee, not elsewhere classified (03/27/24) Stiffness of left knee, not elsewhere classified (03/27/24) Other lack of coordination (03/27/24) Weakness (03/27/24) Physical Therapy Treatment Note PT-OP-A Visit Information Start: 03/17/24 09:55 Freq: Status: Active Protocol: Document 03/27/24 13:27 AB (Rec: 03/27/24 16:25 AB [id number]) Out-Patient Physical Therapy Visit Information Visit Information Visit Type Treatment Note Visit Note Access Code: [email or web address] visits approved initially Visit Start Time 13:20 Visit Stop Time 16:09 Visit Number 2 Number of [employer]LECT[employer] Visits 1 Evaluation Information Evaluation Date 03/17/24 Precautions Precautions PMH arthritis and back pain PT-OP-B Current Condition Start: 03/17/24 09:55 Freq: Status: Active Protocol: Document 03/17/24 11:29 NM (Rec: 03/17/24 12:27 NM [id number]) Current Condition History of Current Condition Onset Date chronic History of Current Condition Pt presents with B knee pain ( R>L). 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 Pt reports at least 8 years since has been out of active duty. He reports that he has not been active with exercise, but states hasn't been as active overall since pandemic. Reports pain with working out , yard work, knee flexion, sitting, stairs. Pt reports he slept wrong, so his back currently hurts; however, he states that his back does not normally hurt. Drove a lot this weekend, bothers him today. He reports no numbness or tingling in BLE; however, he does report mild occasional burning to R lateral ankle. Has not been referred to ortho . 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 Patient reports the area of his foot that he said was cold is actually numb he has noticed when he was driving. PT-OP-F Manual Assessment Start: 03/17/24 09:55 Freq: Status: Active Protocol: Document 03/17/24 11:29 NM (Rec: 03/17/24 12:58 NM [id number]) Manual Assessments Soft Tissue Assessment Soft Tissue Mobility Assessment Tightness of B hamstrings and hip flexors, R>L. Increased tightness of B paraspinals Joint Mobility Assessment Joint Mobility Assessment Mild clicking at R knee with tibial rotation Hypomobility of lumbar spine PT-OP-G Mobility & Gait Start: 03/17/24 09:55 Freq: Status: Active Protocol: Document 03/17/24 11:29 NM (Rec: 03/17/24 12:58 NM [id number]) OP Mobility Evaluation Transfers Sit to Stand with hand assist from edge of chair, painful at B knees OP Gait Assessment Gait Gait Assistance Required: Independent Distance (Feet) 150 Gait Deviations General Gait Pattern Antalgic,Flexed Trunk Factors Limiting Gait Function Factors Limiting Gait Function Decreased Activity Tolerance, Decreased Strength,Limited Range of Motion,Pain Comments Gait Comments Wider based gait, mildly antalgic. Demos lack of R knee extension. Stiff trunk PT-OP-J Posture/Palpation/Skin Start: 03/17/24 09:55 Freq: Status: Active Protocol: Document 03/17/24 11:29 NM (Rec: 03/17/24 12:27 NM [id number]) Posture Evaluation Position Standing Head/C-Spine Posture C-Spine Flattened L-Spine Posture Increased Lordosis Shoulder Posture (L) Rounded,(R) Rounded Pelvis Posture Anteriorly Tilted Knee Posture (L) Genu Valgus,(R) Genu Valgus Comments Posture Comments Does not fully extend R knee Palpation Assessment Location lumbar spine Palpation Details Tenderness along paraspinals, R SIJ, and lower lumbar spine. Mild tenderness with PA springing of lumbar spinous processes, more distally near scarum Increased tightness of lumbar paraspinals, hip flexors L knee Palpation Findings Soft Tissue Tightness, Tenderness Palpation Details Tenderness along medial joint line no tenderness along patellar tendon, patella, lateral joint line, tibia, femur, pes anserine R knee Palpation Findings Soft Tissue Tightness, Tenderness Palpation Details Tenderness along medial joint line; more marked than L side Mild tenderness and feeling of distal hamstring tendon thickening no tenderness along patellar tendon, patella, lateral joint line, tibia, femur, pes anserine PT-OP-K Range of Motion Start: 03/17/24 09:55 Freq: Status: Active Protocol: Document 03/17/24 11:29 NM (Rec: 03/17/24 12:27 NM [id number]) Lumbar Spine Range of Motion Lumbar Spine Active Percentage Flexion 75 Extension 100 Rotation Left 100 Rotation Right 100 Lateral Flexion Left 100 Lateral Flexion Right 100 Comments reports burning at R ankle with LF and rotation Hip Goniometric Range of Motion Hip Left Internal Rotation 30 External Rotation 25 Right Internal Rotation 25 External Rotation 25 Comments reproduces back pain Knee Goniometric Range of Motion Knee Left Flexion Active (degrees) 130 Extension Active (degrees) 3 Right Flexion Active (degrees) 125 Extension Active (degrees) 5 PT-OP-L Special Tests Start: 03/17/24 09:55 Freq: Status: Active Protocol: Document 03/17/24 11:29 NM (Rec: 03/17/24 12:27 NM [id number]) Special Tests Lumbar Spine Special Tests Traction Test Results - Comments no change in symptoms Straight Leg Raise Test Results + Comments R, reproduced in low back Slump Test Results + Comments R, reproduced in low back Francis/quadrant Test Results + Comments R sided low back Knee Special Tests Varus Test Results - B Comments 0 and 25 deg flex Valgus Test Results - B Comments 0 and 25 deg flex Thessaly Test Results - B Jammie Test Results - B Emery's Test Results - B PT-OP-M Strength Start: 03/17/24 09:55 Freq: Status: Active Protocol: Document 03/17/24 11:29 NM (Rec: 03/17/24 12:27 NM [id number]) Trunk Strength Trunk Manual Muscle Testing Flexion 4- Good- Extension 4- Good- Rotation Left 4- Good- Rotation Right 4- Good- Lateral Flexion Left 4- Good- Lateral Flexion Right 4- Good- Comments No pain reproduction with resisted testing Hip Strength Hip Manual Muscle Testing Left Flexion (L2) 4 Good Extension (S1) 4- Good- Abduction 4 Good Adduction 4- Good- External Rotation 4- Good- Internal Rotation 4- Good- Right Flexion (L2) 4 Good Extension (S1) 4- Good- Abduction 4 Good Adduction 4 Good External Rotation 4- Good- Internal Rotation 4- Good- Knee Strength Knee Manual Muscle Testing Left Flexion (S2) 4 Good Extension (L3) 4 Good Right Flexion (S2) 4- Good- Extension (L3) 4- Good- Comments reports mild reproduction in knee pain Ankle/Foot Strength Ankle and Foot Manual Muscle Testing Left Dorsiflexion (L4) 4 Good Plantarflexion (S1) 4 Good Right Dorsiflexion (L4) 4- Good- Plantarflexion (S1) 4- Good- PT-OP-Q Treatments Start: 03/17/24 09:55 Freq: Status: Active Protocol: Document 03/27/24 13:27 AB (Rec: 03/27/24 16:25 AB [id number]) Therapeutic Exercises Supine Exercises knee flex on ball Side bilateral Reps/Minutes 2 min Comments Post manual hamstring/nerve mobilization Supine Exercise Name knee flex and ext Side bilateral Equipment Used towel behind knee Reps/Minutes 30 ea w/ 5 sec breath holds Comments R more restricted than L reports no increase in symptoms bridge Side bilateral Reps/Minutes 10 Comments monitored for pain, reports no pain, VC to dec height initiatlly Standing Exercises side stepping with band Standing Exercise Name in mini squat position HEP Resistance level 3 [place] green band Reps/Minutes 1 minute post training Comments Verbal and visual cues, repeated cues to avoid toe out hip flexor stretch Standing Exercise Name staggered stance Side bilateral Equipment Used with ppt Reps/Minutes 60 ea with AROM IR Comments added AROM into 60+ min stretch, VC for back foot on forefoot vs entire nitin Manual Therapy Treatment Consent Patient gave verbal consent for manual Yes treatment Soft Tissue Mobilization bilateral knees Body Location for swelling, quad and HS Mobilization Type Cross-Friction,Rolling,Other Intensity/Depth Moderate Body Position Hooklying Joint Mobilizations patella Joint bilateral Direction inf, sup, med, lat Grade III Body Position Supine Reps/Duration X6 each direction each LE tibia on femur Joint bilateral knees Direction AP and PA Grade III Body Position Supine Reps/Duration X10 each Comments monitored for pain PT-OP-T Assessment and Plan Start: 03/17/24 09:55 Freq: Status: Active Protocol: Document 03/27/24 13:27 AB (Rec: 03/27/24 16:25 AB [id number]) Physical Therapy Assessment Goals Four Impairment pain with knee flexion during yard work Halfway Goal (LTG) Pt will report that he is able to perform yard work with <3/ 10 R knee pain and <2/10 L knee pain in order to demonstrate improved knee flexion AROM and activity tolerance LTG Duration 8 weeks Three Impairment back/knee pain with sitting 60 minutes max with increased pain at work/car [employer] Goal (LTG) Pt will report that he is able to sit > 60 minutes in order to perform job requirements or drive in his car without increase in B knee LTG Duration 8 weeks Two Impairment B knee extension limited [employer] Goal (LTG) Pt will improve R knee flexion > 125 deg and B knee extension <2 deg in order to demonstrate improved TKE for gait, transfers, and ADLs LTG Duration 8 weeks One Impairment not performing HEP or general exercise program Short Term Goal (STG) Pt will report compliance with HEP at least 2-3x/wk in order to maximize progression with PT STG Duration 4 weeks [employer] Goal (LTG) Pt will report compliance with HEP at least 3x/wk in order to promote quick transition to maintenance program for improved carryover between PT sessions and after discharge LTG Duration 8 weeks Assessment Summary Assessment Von reports having no pain end of session, comments muscles feel like they worked. Patient reports less knee pain when given instructions for back LE to be on forefoot/toes reporting that he had been performing with foot flat and had knee pain. Physical Therapy Plan Frequency and Duration Frequency of Treatment 1-2x/wk Duration of treatment (weeks) 8 Plan of Care Start Date 03/17/24 Plan of Care End Date 05/16/24 Next Visit Focus/Plan Next Note Type Treatment Note Next Visit Plan Review HEP. Treat knees only but can do global stretching and core/hip strengthening prone hip extension, (assess moose to HEP addidtion of side steps), LAQ, prone vs standing HSC, glute medius in standing and with squat if tolerated, hip IR staggered stance. stretch quad, Nexxt session HS, hip flexors (possibly AROM knee flexion during HS stretch )-be mindful of low back Joint mobilizations to R knee and STM POC: progress to step up stairs, leg press,
--- NOTE | 2024-04-15 15:31 | PT.OTN ---
Current Diagnoses Bilateral primary osteoarthritis of knee (04/15/24) Stiffness of right hip, not elsewhere classified (04/15/24) Stiffness of left hip, not elsewhere classified (04/15/24) Stiffness of right knee, not elsewhere classified (04/15/24) Stiffness of left knee, not elsewhere classified (04/15/24) Other lack of coordination (04/15/24) Weakness (04/15/24) Physical Therapy Treatment Note PT-OP-A Visit Information Start: 03/17/24 09:55 Freq: Status: Active Protocol: Document 04/15/24 14:37 NM (Rec: 04/15/24 15:31 NM [id number]) Out-Patient Physical Therapy Visit Information Visit Information Visit Type Progress Note Visit Note Access Code: [email or web address] visits approved initially Visit Start Time 14:38 Visit Stop Time 15:15 Visit Number 3/ Evaluation Information Evaluation Date 03/17/24 Precautions Precautions PMH arthritis and back pain PT-OP-B Current Condition Start: 03/17/24 09:55 Freq: Status: Active Protocol: Document 03/17/24 11:29 NM (Rec: 03/17/24 12:27 NM [id number]) Current Condition History of Current Condition Onset Date chronic History of Current Condition Pt presents with B knee pain ( R>L). 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 Pt reports at least 8 years since has been out of active duty. He reports that he has not been active with exercise, but states hasn't been as active overall since pandemic. Reports pain with working out , yard work, knee flexion, sitting, stairs. Pt reports he slept wrong, so his back currently hurts; however, he states that his back does not normally hurt. Drove a lot this weekend, bothers him today. He reports no numbness or tingling in BLE; however, he does report mild occasional burning to R lateral ankle. Has not been referred to ortho . 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 Pt reports that strengthening is better, states that hip strength helps his knees. Reports that he is having less pain with driving in car, yardwork, and with sitting in general. Also reports that he does notice that he is having numbness along L foot (Dorsal and slightly lateral), has not figured out what makes it present/worse but is paying closer attention right now. PT-OP-F Manual Assessment Start: 03/17/24 09:55 Freq: Status: Active Protocol: Document 03/17/24 11:29 NM (Rec: 03/17/24 12:58 NM [id number]) Manual Assessments Soft Tissue Assessment Soft Tissue Mobility Assessment Tightness of B hamstrings and hip flexors, R>L. Increased tightness of B paraspinals Joint Mobility Assessment Joint Mobility Assessment Mild clicking at R knee with tibial rotation Hypomobility of lumbar spine PT-OP-G Mobility & Gait Start: 03/17/24 09:55 Freq: Status: Active Protocol: Document 03/17/24 11:29 NM (Rec: 03/17/24 12:58 NM [id number]) OP Mobility Evaluation Transfers Sit to Stand with hand assist from edge of chair, painful at B knees OP Gait Assessment Gait Gait Assistance Required: Independent Distance (Feet) 150 Gait Deviations General Gait Pattern Antalgic,Flexed Trunk Factors Limiting Gait Function Factors Limiting Gait Function Decreased Activity Tolerance, Decreased Strength,Limited Range of Motion,Pain Comments Gait Comments Wider based gait, mildly antalgic. Demos lack of R knee extension. Stiff trunk PT-OP-J Posture/Palpation/Skin Start: 03/17/24 09:55 Freq: Status: Active Protocol: Document 03/17/24 11:29 NM (Rec: 03/17/24 12:27 NM [id number]) Posture Evaluation Position Standing Head/C-Spine Posture C-Spine Flattened L-Spine Posture Increased Lordosis Shoulder Posture (L) Rounded,(R) Rounded Pelvis Posture Anteriorly Tilted Knee Posture (L) Genu Valgus,(R) Genu Valgus Comments Posture Comments Does not fully extend R knee Palpation Assessment Location lumbar spine Palpation Details Tenderness along paraspinals, R SIJ, and lower lumbar spine. Mild tenderness with PA springing of lumbar spinous processes, more distally near scarum Increased tightness of lumbar paraspinals, hip flexors L knee Palpation Findings Soft Tissue Tightness, Tenderness Palpation Details Tenderness along medial joint line no tenderness along patellar tendon, patella, lateral joint line, tibia, femur, pes anserine R knee Palpation Findings Soft Tissue Tightness, Tenderness Palpation Details Tenderness along medial joint line; more marked than L side Mild tenderness and feeling of distal hamstring tendon thickening no tenderness along patellar tendon, patella, lateral joint line, tibia, femur, pes anserine PT-OP-K Range of Motion Start: 03/17/24 09:55 Freq: Status: Active Protocol: Document 04/15/24 14:37 NM (Rec: 04/15/24 15:31 NM [id number]) Knee Goniometric Range of Motion Knee Left Flexion Active (degrees) 130 Extension Active (degrees) 0 Comments Ie: 130 deg flex, lacking 3 deg ext 04/15/24: 0 deg ext Right Flexion Active (degrees) 130 Extension Active (degrees) 0 Comments IE: 125 deg flex, lacking 5 deg ext 04/15/24: 130 deg flex to 0 deg ext PT-OP-L Special Tests Start: 03/17/24 09:55 Freq: Status: Active Protocol: Document 03/17/24 11:29 NM (Rec: 03/17/24 12:27 NM [id number]) Special Tests Lumbar Spine Special Tests Traction Test Results - Comments no change in symptoms Straight Leg Raise Test Results + Comments R, reproduced in low back Slump Test Results + Comments R, reproduced in low back Francis/quadrant Test Results + Comments R sided low back Knee Special Tests Varus Test Results - B Comments 0 and 25 deg flex Valgus Test Results - B Comments 0 and 25 deg flex Thessaly Test Results - B Jammie Test Results - B Emery's Test Results - B PT-OP-M Strength Start: 03/17/24 09:55 Freq: Status: Active Protocol: Document 04/15/24 14:37 NM (Rec: 04/15/24 15:31 NM [id number]) Knee Strength Knee Manual Muscle Testing Left Flexion (S2) 4 Good Extension (L3) 4 Good Comments 04/15/24: no knee pain, 4/5 Right Flexion (S2) 4 Good Extension (L3) 4 Good Comments IE: reports mild reproduction in knee pain; 4-/5 for both 04/15/24: 4/5, no knee pain PT-OP-Q Treatments Start: 03/17/24 09:55 Freq: Status: Active Protocol: Document 04/15/24 14:37 NM (Rec: 04/15/24 15:31 NM [id number]) Therapeutic Exercises Supine Exercises figure 4 stretch Supine Exercise Name with 90 deg hip flexion Side bilateral Equipment Used with towel assist Reps/Minutes 60 ea Comments good glute stretch; R harder for hip flexion hamstring/nerve mobilization Supine Exercise Name knee flex and ext Side bilateral Equipment Used towel behind knee Reps/Minutes 20 ea w/ 5 sec breath holds Comments R more restricted than L reports no increase in symptoms Standing Exercises DF mobilization Standing Exercise Name PT providing post glide Side left Equipment Used on stool Reps/Minutes 10x3 calf stretch Standing Exercise Name 1. gastrocnemius (HEP), 2. soleus Side bilateral Equipment Used hand support at table Reps/Minutes 60 ea squat Standing Exercise Name wall mini-squat hold Side bilateral Resistance level 3 band at thighs Reps/Minutes 4x30 ea Comments no knee pain if mini-squat hip 3 way Standing Exercise Name minisquat Side bilateral Resistance [place] green level 3 band at thighs Equipment Used prn hand support for balance, hands on hips Reps/Minutes 10 ea hip flexor stretch Standing Exercise Name staggered stance Side bilateral Equipment Used with ppt Reps/Minutes 60 ea with AROM IR Manual Therapy Treatment Consent Patient gave verbal consent for manual Yes treatment Soft Tissue Mobilization bilateral knees Body Location quad and HS, calf, adductors Mobilization Type Cross-Friction,Rolling,Other Intensity/Depth Moderate Body Position Hooklying Comments Increased tightness on LLE but tenderness on RLE at medial joint line, pes anserine and mid-adductors. Reduced with mobilization PT-OP-T Assessment and Plan Start: 03/17/24 09:55 Freq: Status: Active Protocol: Document 04/15/24 14:37 NM (Rec: 04/15/24 15:31 NM [id number]) Physical Therapy Assessment Goals Four Impairment pain with knee flexion during yard work [employer] Tier Off Goal (LTG) Pt will report that he is able to perform yard work with <3/ 10 R knee pain and <2/10 L knee pain in order to demonstrate improved knee flexion AROM and activity tolerance 04/15/24: pt reports <2/10 in both knees with yardwork and ADLs (has not had to mow lawn) LTG Duration 8 weeks PROGRESSING Three Impairment back/knee pain with sitting 60 minutes max with increased pain at work/car Intermediate Goal (LTG) Pt will report that he is able to sit > 60 minutes in order to perform job requirements or drive in his car without increase in B knee 04/15/24: reports can sit at work 3-4 hours without pain, can sit in car for several hours with less pain in knees LTG Duration 8 weeks PROGRESSING Two Impairment B knee extension limited [employer] Tier Off Goal (LTG) Pt will improve R knee flexion > 125 deg and B knee extension <2 deg in order to demonstrate improved TKE for gait, transfers, and ADLs 04/15/24: 130 deg R knee flex and 0 deg ext; 0 deg L knee ext LTG Duration 8 weeks MET One Impairment not performing HEP or general exercise program Short Term Goal (STG) Pt will report compliance with HEP at least 2-3x/wk in order to maximize progression with PT 04/15/24: performing 3x/wk STG Duration 4 weeks Intermediate Goal (LTG) Pt will report compliance with HEP at least 3x/wk in order to promote quick transition to maintenance program for improved carryover between PT sessions and after discharge LTG Duration 8 weeks Progress Towards Goals Progress Towards Goals Progressing Toward Goals,Goals Met Assessment Summary Assessment Pt tolerated session well, no knee pain reported at end of session. Trialed squats to chair but increased knee pain, none with mini-wall squats with band for time. Cueing for hip hinge mechanics. Continued with hip strengthening, initiating hip 3 way with mini-squat; no knee pain but unable to perform >5 reps due to quad fatigue. Improved B knee ROM today. Continued with global hip and knee stretching; modified hip ER and calf stretching for pt comfort and to maximize stretch. Physical Therapy Plan Frequency and Duration Frequency of Treatment 1-2x/wk Duration of treatment (weeks) 8 Plan of Care Start Date 03/17/24 Plan of Care End Date 05/16/24 Therapeutic Interventions Therapeutic Interventions Balance Training,Gait Training ,Home Exercise Program,Joint Mobilizations,Manual Therapy, Neuromuscular Re-education, Orthotic/Prosthetic Management ,Patient/Caregiver Education, Self-Care/Home Management, Sensory Integration,Soft Tissue Mobilization,Taping, Therapeutic Activities, Therapeutic Exercises Modalities Cold Pack/Ice Massage,Electric Stimulation,Hot Packs, Traction- Mechanical, Ultrasound,Vasopneumatic Devices Next Visit Focus/Plan Next Note Type Treatment Note Next Visit Plan Cont hip stretching. Retrial soleus stretch. Progress to step up/lateral step down. Cont hip 3 ways, squat progression, heel raises. Trial quad stretch if needed. standing HSC, LAQ. Promote glute medius/max and quad strength. Progress to step up and leg press if no inc pain *be mindful of low back Manual therapy to B knees (R>L )
--- NOTE | 2024-04-24 16:39 | PT.OTN ---
Current Diagnoses Bilateral primary osteoarthritis of knee (04/24/24) Stiffness of right hip, not elsewhere classified (04/24/24) Stiffness of left hip, not elsewhere classified (04/24/24) Stiffness of right knee, not elsewhere classified (04/24/24) Stiffness of left knee, not elsewhere classified (04/24/24) Other lack of coordination (04/24/24) Weakness (04/24/24) Physical Therapy Treatment Note PT-OP-A Visit Information Start: 03/17/24 09:55 Freq: Status: Active Protocol: Document 04/24/24 14:35 SW (Rec: 04/24/24 16:29 SW [id number]) Out-Patient Physical Therapy Visit Information Visit Information Visit Type Treatment Note Visit Note Access Code: [email or web address] visits approved initially Visit Start Time 14:33 Visit Stop Time 15:15 Visit Number 4/6 Number of [employer]ING GAME WARDEN Visits 1 Precautions Precautions PMH arthritis and back pain PT-OP-B Current Condition Start: 03/17/24 09:55 Freq: Status: Active Protocol: Document 03/17/24 11:29 NM (Rec: 03/17/24 12:27 NM [id number]) Current Condition History of Current Condition Onset Date chronic History of Current Condition Pt presents with B knee pain ( R>L). 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 Pt reports at least 8 years since has been out of active duty. He reports that he has not been active with exercise, but states hasn't been as active overall since pandemic. Reports pain with working out , yard work, knee flexion, sitting, stairs. Pt reports he slept wrong, so his back currently hurts; however, he states that his back does not normally hurt. Drove a lot this weekend, bothers him today. He reports no numbness or tingling in BLE; however, he does report mild occasional burning to R lateral ankle. Has not been referred to ortho . 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 PT-OP-F Manual Assessment Start: 03/17/24 09:55 Freq: Status: Active Protocol: Document 03/17/24 11:29 NM (Rec: 03/17/24 12:58 NM [id number]) Manual Assessments Soft Tissue Assessment Soft Tissue Mobility Assessment Tightness of B hamstrings and hip flexors, R>L. Increased tightness of B paraspinals Joint Mobility Assessment Joint Mobility Assessment Mild clicking at R knee with tibial rotation Hypomobility of lumbar spine PT-OP-G Mobility & Gait Start: 03/17/24 09:55 Freq: Status: Active Protocol: Document 03/17/24 11:29 NM (Rec: 03/17/24 12:58 NM [id number]) OP Mobility Evaluation Transfers Sit to Stand with hand assist from edge of chair, painful at B knees OP Gait Assessment Gait Gait Assistance Required: Independent Distance (Feet) 150 Gait Deviations General Gait Pattern Antalgic,Flexed Trunk Factors Limiting Gait Function Factors Limiting Gait Function Decreased Activity Tolerance, Decreased Strength,Limited Range of Motion,Pain Comments Gait Comments Wider based gait, mildly antalgic. Demos lack of R knee extension. Stiff trunk PT-OP-J Posture/Palpation/Skin Start: 03/17/24 09:55 Freq: Status: Active Protocol: Document 03/17/24 11:29 NM (Rec: 03/17/24 12:27 NM [id number]) Posture Evaluation Position Standing Head/C-Spine Posture C-Spine Flattened L-Spine Posture Increased Lordosis Shoulder Posture (L) Rounded,(R) Rounded Pelvis Posture Anteriorly Tilted Knee Posture (L) Genu Valgus,(R) Genu Valgus Comments Posture Comments Does not fully extend R knee Palpation Assessment Location lumbar spine Palpation Details Tenderness along paraspinals, R SIJ, and lower lumbar spine. Mild tenderness with PA springing of lumbar spinous processes, more distally near scarum Increased tightness of lumbar paraspinals, hip flexors L knee Palpation Findings Soft Tissue Tightness, Tenderness Palpation Details Tenderness along medial joint line no tenderness along patellar tendon, patella, lateral joint line, tibia, femur, pes anserine R knee Palpation Findings Soft Tissue Tightness, Tenderness Palpation Details Tenderness along medial joint line; more marked than L side Mild tenderness and feeling of distal hamstring tendon thickening no tenderness along patellar tendon, patella, lateral joint line, tibia, femur, pes anserine PT-OP-K Range of Motion Start: 03/17/24 09:55 Freq: Status: Active Protocol: Document 04/15/24 14:37 NM (Rec: 04/15/24 15:31 NM [id number]) Knee Goniometric Range of Motion Knee Left Flexion Active (degrees) 130 Extension Active (degrees) 0 Comments Ie: 130 deg flex, lacking 3 deg ext 04/15/24: 0 deg ext Right Flexion Active (degrees) 130 Extension Active (degrees) 0 Comments IE: 125 deg flex, lacking 5 deg ext 04/15/24: 130 deg flex to 0 deg ext PT-OP-L Special Tests Start: 03/17/24 09:55 Freq: Status: Active Protocol: Document 03/17/24 11:29 NM (Rec: 03/17/24 12:27 NM [id number]) Special Tests Lumbar Spine Special Tests Traction Test Results - Comments no change in symptoms Straight Leg Raise Test Results + Comments R, reproduced in low back Slump Test Results + Comments R, reproduced in low back Francis/quadrant Test Results + Comments R sided low back Knee Special Tests Varus Test Results - B Comments 0 and 25 deg flex Valgus Test Results - B Comments 0 and 25 deg flex Thessaly Test Results - B Jammie Test Results - B Emery's Test Results - B PT-OP-M Strength Start: 03/17/24 09:55 Freq: Status: Active Protocol: Document 04/15/24 14:37 NM (Rec: 04/15/24 15:31 NM [id number]) Knee Strength Knee Manual Muscle Testing Left Flexion (S2) 4 Good Extension (L3) 4 Good Comments 04/15/24: no knee pain, 4/5 Right Flexion (S2) 4 Good Extension (L3) 4 Good Comments IE: reports mild reproduction in knee pain; 4-/5 for both 04/15/24: 4/5, no knee pain PT-OP-Q Treatments Start: 03/17/24 09:55 Freq: Status: Active Protocol: Document 04/24/24 14:35 (Rec: 04/24/24 15:23 [id number]) Cardio Equipment Elliptical Duration (Minutes) 6 Resistance 3 Other trialed for warmup, tolerated well Therapeutic Exercises Supine Exercises figure 4 stretch Supine Exercise Name with 90 deg hip flexion Side bilateral Equipment Used with towel assist Reps/Minutes 60 ea Comments good glute stretch; R harder for hip flexion hamstring/nerve mobilization Supine Exercise Name knee flex and ext Side bilateral Equipment Used towel behind knee Reps/Minutes 10 ea w/ 5 sec breath holds Comments R more restricted than L reports no increase in symptoms Standing Exercises Heel raises Standing Exercise Name Heel raises (issued HEP HO) Reps/Minutes 2x10 w/ 2 hold at top Comments pain free, cues for slow eccentric conrol Quad stretch Standing Exercise Name Quad stretch (issued HEP HO) Side bilateral Reps/Minutes 60 Comments cued for alignment, gentle pain free stretch calf stretch Standing Exercise Name 1. gastrocnemius (HEP), 2. soleus Side bilateral Equipment Used hand support at table Reps/Minutes 60 ea squat Standing Exercise Name wall mini-squat hold Side bilateral Resistance level 3 band at thighs Reps/Minutes 4x30 ea Comments cued pain free range side stepping with band Standing Exercise Name in mini squat position HEP Resistance level 3 [place] band green band Reps/Minutes 1' Comments Verbal and visual cues, repeated cues to avoid toe out hip flexor stretch Standing Exercise Name staggered stance Side bilateral Equipment Used with ppt Reps/Minutes 60 ea with AROM IR Comments cued for pelvic alignement to feel stretch, good feedback PT-OP-T Assessment and Plan Start: 03/17/24 09:55 Freq: Status: Active Protocol: Document 04/24/24 14:35 (Rec: 04/24/24 15:23 [id number]) Physical Therapy Assessment Goals Four Impairment pain with knee flexion during yard work [employer] Goal (LTG) Pt will report that he is able to perform yard work with <3/ 10 R knee pain and <2/10 L knee pain in order to demonstrate improved knee flexion AROM and activity tolerance 04/15/24: pt reports <2/10 in both knees with yardwork and ADLs (has not had to mow lawn) LTG Duration 8 weeks PROGRESSING Three Impairment back/knee pain with sitting 60 minutes max with increased pain at work/car Assisted Goal (LTG) Pt will report that he is able to sit > 60 minutes in order to perform job requirements or drive in his car without increase in B knee 04/15/24: reports can sit at work 3-4 hours without pain, can sit in car for several hours with less pain in knees LTG Duration 8 weeks PROGRESSING Two Impairment B knee extension limited [place] [place] [employer] Goal (LTG) Pt will improve R knee flexion > 125 deg and B knee extension <2 deg in order to demonstrate improved TKE for gait, transfers, and ADLs 04/15/24: 130 deg R knee flex and 0 deg ext; 0 deg L knee ext LTG Duration 8 weeks MET One Impairment not performing HEP or general exercise program Short Term Goal (STG) Pt will report compliance with HEP at least 2-3x/wk in order to maximize progression with PT 04/15/24: performing 3x/wk STG Duration 4 weeks [place] [place] [employer] Goal (LTG) Pt will report compliance with HEP at least 3x/wk in order to promote quick transition to maintenance program for improved carryover between PT sessions and after discharge LTG Duration 8 weeks Assessment Summary Assessment Initiated heel raises and quad stretch this session, issued HEP HO. Pt reports feels good stretch with standing quad stretch. Continued hip stretches. Re-trialed soleus stretch today, pt felt a good stretch. Pt tolerated session well overall today, pt reported feeling muscles work throughout session today, denies increase in pain level, though pt seemed to have difficulty at times differentiating between if it is muscles working or pain. Plan to followup on tolerance next session and continue to progress per PT plan next session. Physical Therapy Plan Frequency and Duration Frequency of Treatment 1-2x/wk Duration of treatment (weeks) 8 Plan of Care Start Date 03/17/24 Plan of Care End Date 05/16/24 Therapeutic Interventions Therapeutic Interventions Balance Training,Gait Training ,Home Exercise Program,Joint Mobilizations,Manual Therapy, Neuromuscular Re-education, Orthotic/Prosthetic Management ,Patient/Caregiver Education, Self-Care/Home Management, Sensory Integration,Soft Tissue Mobilization,Taping, Therapeutic Activities, Therapeutic Exercises Modalities Cold Pack/Ice Massage,Electric Stimulation,Hot Packs, Traction- Mechanical, Ultrasound,Vasopneumatic Devices Next Visit Focus/Plan Next Note Type Treatment Note Next Visit Plan Cont hip stretching. Progress to step up/lateral step down. Cont hip 3 ways, squat progression, heel raises. standing HSC, LAQ. Promote glute medius/max and quad strength. Progress to step up and leg press if no inc pain *be mindful of low back Manual therapy to B knees (R>L )
--- NOTE | 2024-05-01 13:23 | PT.OTN ---
Current Diagnoses Bilateral primary osteoarthritis of knee (05/01/24) Stiffness of right hip, not elsewhere classified (05/01/24) Stiffness of left hip, not elsewhere classified (05/01/24) Stiffness of right knee, not elsewhere classified (05/01/24) Stiffness of left knee, not elsewhere classified (05/01/24) Other lack of coordination (05/01/24) Weakness (05/01/24) Physical Therapy Treatment Note PT-OP-A Visit Information Start: 03/17/24 09:55 Freq: Status: Active Protocol: Document 05/01/24 12:37 NM (Rec: 05/01/24 13:23 NM [id number]) Out-Patient Physical Therapy Visit Information Visit Information Visit Type Discharge Summary Visit Note Access Code: [email or web address] visits approved initially Visit Start Time 12:40 Visit Stop Time 11:20 Visit Number 5/ Evaluation Information Evaluation Date 03/17/24 Precautions Precautions PMH arthritis and back pain PT-OP-B Current Condition Start: 03/17/24 09:55 Freq: Status: Active Protocol: Document 03/17/24 11:29 NM (Rec: 03/17/24 12:27 NM [id number]) Current Condition History of Current Condition Onset Date chronic History of Current Condition Pt presents with B knee pain ( R>L). 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 Pt reports at least 8 years since has been out of active duty. He reports that he has not been active with exercise, but states hasn't been as active overall since pandemic. Reports pain with working out , yard work, knee flexion, sitting, stairs. Pt reports he slept wrong, so his back currently hurts; however, he states that his back does not normally hurt. Drove a lot this weekend, bothers him today. He reports no numbness or tingling in BLE; however, he does report mild occasional burning to R lateral ankle. Has not been referred to ortho . 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 He states that he still feels a little pain 1/10 in knees but states that overall better. He is wanting to be done with PT to transition into strengthening with maintenance program. Planning to bring up numbness to his PCP next visit PT-OP-F Manual Assessment Start: 03/17/24 09:55 Freq: Status: Active Protocol: Document 03/17/24 11:29 NM (Rec: 03/17/24 12:58 NM [id number]) Manual Assessments Soft Tissue Assessment Soft Tissue Mobility Assessment Tightness of B hamstrings and hip flexors, R>L. Increased tightness of B paraspinals Joint Mobility Assessment Joint Mobility Assessment Mild clicking at R knee with tibial rotation Hypomobility of lumbar spine PT-OP-G Mobility & Gait Start: 03/17/24 09:55 Freq: Status: Active Protocol: Document 03/17/24 11:29 NM (Rec: 03/17/24 12:58 NM [id number]) OP Mobility Evaluation Transfers Sit to Stand with hand assist from edge of chair, painful at B knees OP Gait Assessment Gait Gait Assistance Required: Independent Distance (Feet) 150 Gait Deviations General Gait Pattern Antalgic,Flexed Trunk Factors Limiting Gait Function Factors Limiting Gait Function Decreased Activity Tolerance, Decreased Strength,Limited Range of Motion,Pain Comments Gait Comments Wider based gait, mildly antalgic. Demos lack of R knee extension. Stiff trunk PT-OP-J Posture/Palpation/Skin Start: 03/17/24 09:55 Freq: Status: Active Protocol: Document 03/17/24 11:29 NM (Rec: 03/17/24 12:27 NM [id number]) Posture Evaluation Position Standing Head/C-Spine Posture C-Spine Flattened L-Spine Posture Increased Lordosis Shoulder Posture (L) Rounded,(R) Rounded Pelvis Posture Anteriorly Tilted Knee Posture (L) Genu Valgus,(R) Genu Valgus Comments Posture Comments Does not fully extend R knee Palpation Assessment Location lumbar spine Palpation Details Tenderness along paraspinals, R SIJ, and lower lumbar spine. Mild tenderness with PA springing of lumbar spinous processes, more distally near scarum Increased tightness of lumbar paraspinals, hip flexors L knee Palpation Findings Soft Tissue Tightness, Tenderness Palpation Details Tenderness along medial joint line no tenderness along patellar tendon, patella, lateral joint line, tibia, femur, pes anserine R knee Palpation Findings Soft Tissue Tightness, Tenderness Palpation Details Tenderness along medial joint line; more marked than L side Mild tenderness and feeling of distal hamstring tendon thickening no tenderness along patellar tendon, patella, lateral joint line, tibia, femur, pes anserine PT-OP-K Range of Motion Start: 03/17/24 09:55 Freq: Status: Active Protocol: Document 05/01/24 12:37 NM (Rec: 05/01/24 13:23 NM [id number]) Knee Goniometric Range of Motion Knee Left Flexion Active (degrees) 130 Extension Active (degrees) 0 Comments Ie: 130 deg flex, lacking 3 deg ext 04/15/24: 0 deg ext Right Flexion Active (degrees) 130 Extension Active (degrees) 0 Comments IE: 125 deg flex, lacking 5 deg ext 04/15/24: 130 deg flex to 0 deg ext PT-OP-L Special Tests Start: 03/17/24 09:55 Freq: Status: Active Protocol: Document 03/17/24 11:29 NM (Rec: 03/17/24 12:27 NM [id number]) Special Tests Lumbar Spine Special Tests Traction Test Results - Comments no change in symptoms Straight Leg Raise Test Results + Comments R, reproduced in low back Slump Test Results + Comments R, reproduced in low back Francis/quadrant Test Results + Comments R sided low back Knee Special Tests Varus Test Results - B Comments 0 and 25 deg flex Valgus Test Results - B Comments 0 and 25 deg flex Thessaly Test Results - B Jammie Test Results - B Emery's Test Results - B PT-OP-M Strength Start: 03/17/24 09:55 Freq: Status: Active Protocol: Document 05/01/24 12:37 NM (Rec: 05/01/24 13:23 NM [id number]) Knee Strength Knee Manual Muscle Testing Left Flexion (S2) 4+ Good+ Extension (L3) 4+ Good+ Comments 04/15/24: no knee pain, 4/5 Right Flexion (S2) 4+ Good+ Extension (L3) 4+ Good+ Comments IE: reports mild reproduction in knee pain; 4-/5 for both 04/15/24: 4/5, no knee pain PT-OP-Q Treatments Start: 03/17/24 09:55 Freq: Status: Active Protocol: Document 05/01/24 12:37 NM (Rec: 05/01/24 13:23 NM [id number]) Therapeutic Exercises Standing Exercises lunge Standing Exercise Name 1. fwd, 2. lateral Side bilateral Equipment Used hands on hips Reps/Minutes 10 ea with pause at end, ea direction Comments cued for form; improved w/ reps toe raises Standing Exercise Name ankle dorsiflexion Side bilateral Reps/Minutes 2x10 w/ 2 hold Heel raises Standing Exercise Name 1. single leg heel raises, 2. soleus raises Side bilateral Equipment Used hand support on wall for balance Reps/Minutes 1. 2x10 w/ 2 hold, 2. 20 w/ pause Comments pain free; good eccentric control calf stretch Standing Exercise Name 1. gastrocnemius (HEP), 2. soleus (HEP) Side bilateral Equipment Used hand support at table Reps/Minutes 60 ea squat Standing Exercise Name wall mini-squat hold Side bilateral Resistance level 3 band at thighs Reps/Minutes 10x5 ea Comments cued pain free range hip 3 way Standing Exercise Name minisquat Side bilateral Resistance [place] level 3 band at ankles Equipment Used prn hand support for balance, hands on hips Reps/Minutes 10 ea hip flexor stretch Standing Exercise Name staggered stance Side bilateral Equipment Used with ppt Reps/Minutes 60 ea with AROM IR Comments cued for pelvic alignement to feel stretch, good feedback PT-OP-T Assessment and Plan Start: 03/17/24 09:55 Freq: Status: Active Protocol: Document 05/01/24 12:37 NM (Rec: 05/01/24 13:23 NM [id number]) Physical Therapy Assessment Goals Four Impairment pain with knee flexion during yard work Ostomy Nurse Goal (LTG) Pt will report that he is able to perform yard work with <3/ 10 R knee pain and <2/10 L knee pain in order to demonstrate improved knee flexion AROM and activity tolerance 04/15/24: pt reports <2/10 in both knees with yardwork and ADLs (has not had to mow lawn) 05/01/24: reprots 1/10 pain wiht ADLs for yardwork LTG Duration 8 weeks MET Three Impairment back/knee pain with sitting 60 minutes max with increased pain at work/car Long-Term Goal (LTG) Pt will report that he is able to sit > 60 minutes in order to perform job requirements or drive in his car without increase in B knee 04/15/24: reports can sit at work 3-4 hours without pain, can sit in car for several hours with less pain in knees 05/01/24: can sit in car for several hours without knee pain LTG Duration 8 weeks MET Two Impairment B knee extension limited Ostomy Nurse Goal (LTG) Pt will improve R knee flexion > 125 deg and B knee extension <2 deg in order to demonstrate improved TKE for gait, transfers, and ADLs 04/15/24: 130 deg R knee flex and 0 deg ext; 0 deg L knee ext LTG Duration 8 weeks MET One Impairment not performing HEP or general exercise program Short Term Goal (STG) Pt will report compliance with HEP at least 2-3x/wk in order to maximize progression with PT 04/15/24: performing 3x/wk STG Duration 4 weeks Long-Term Goal (LTG) Pt will report compliance with HEP at least 3x/wk in order to promote quick transition to maintenance program for improved carryover between PT sessions and after discharge 05/01/24: pt rpeorts compliant with HEP daiy LTG Duration 8 weeks MET Progress Towards Goals Progress Towards Goals Goals Met Assessment Summary Assessment Pt tolerated session well. Session emphasis on establishing maintenance program for pt as planning to discharge to maintenance today . Continued with strengthening of ankles, progressed to single leg strengthening for stability during racquetball and ambulation. Progressed hip and knee strengthening for improved proximal stability. Able to tolerate longer lever arm without increase in discomfort or unsteadiness. Cued form and alignment with lunges. Physical Therapy Plan Frequency and Duration Frequency of Treatment 1-2x/wk Duration of treatment (weeks) 8 Plan of Care Start Date 03/17/24 Plan of Care End Date 05/16/24 Therapeutic Interventions Therapeutic Interventions Balance Training,Gait Training ,Home Exercise Program,Joint Mobilizations,Manual Therapy, Neuromuscular Re-education, Orthotic/Prosthetic Management ,Patient/Caregiver Education, Self-Care/Home Management, Sensory Integration,Soft Tissue Mobilization,Taping, Therapeutic Activities, Therapeutic Exercises Modalities Cold Pack/Ice Massage,Electric Stimulation,Hot Packs, Traction- Mechanical, Ultrasound,Vasopneumatic Devices Discharge Physical Therapy Discharge Reasons Goals Met Discharge Comments All goals met. Pt and PT in agreement about discharge to maintenance program for continued strengthening and stretching. Issued level 4 and 5 bands for strength progressions. Next Visit Focus/Plan Next Note Type Discharge Summary Next Visit Plan discharge from PT
== END 2024-05-02 09:10 | disposition home or self-care (01) ==
LOC: PHYS 13:00
PROVIDERS: Family Provider Family Medicine; PCP Family Medicine; Referring Provider Family Medicine; Visit Provider Family Medicine
DX: M17.0 Bilateral primary osteoarthritis of knee (principal); R53.1 Weakness; M25.662 Stiffness of left knee, not elsewhere classified; M25.652 Stiffness of left hip, not elsewhere classified; M25.651 Stiffness of right hip, not elsewhere classified; M25.661 Stiffness of right knee, not elsewhere classified; R27.8 Other lack of coordination
CPT/HCPCS: 97110; 97140; 97161

== ENCOUNTER → 2025-05-05 07:19 | Outpatient (CLI) | payer OTHER, SELFPAY ==
[2025-05-05 07:59] LABS: Add Manual Diff / Slide Review NO; Hematocrit 48.9 % (41-53); Hemoglobin 16.6 g/dL (13.5-17.5); Lymphocytes Absolute Auto 2000 /uL (1100-4500); Mean Corpuscular HGB Conc 33.9 % (30-36); Mean Corpuscular Hemoglobin 29.1 PG (26-34); Mean Corpuscular Volume 85.8 fL (80-100); Platelet Count 283 X10^3/uL (150-400)
[2025-05-05 08:52] LABS: Alanine Aminotransferase 64 IU/L (<50); Albumin 4.6 g/dL (3.5-5.0); Albumin Globulin Ratio 1.6 (1.0-2.8); Alkaline Phosphatase 88 U/L (38-126); Blood Urea Nitrogen 13 mg/dL (9-20); Calcium 9.8 mg/dL (8.4-10.2); Carbon Dioxide 30 mmol/L (22-32); Chloride 102 mmol/L (98-107); Cholesterol 190 mg/dL (140-199); Estimated Glomerular Filt Rate > 60 mL/min (>60); Globulin 2.9 g/dL (1.7-4.1); Glucose 111 mg/dL (70-99); HDL Cholesterol 37 mg/dL (40-60); HEMOLYSIS < 15 (0-50); Potassium 4.8 mmol/L (3.4-5.1); Sodium 140 mmol/L (137-145); Total Protein 7.5 g/dL (6.3-8.2); Triglycerides 258 mg/dL (35-150)
[2025-05-05 09:49] LABS: TSH w/ Reflex to FT4 0.92 uIU/mL (0.47-4.68)
== END ==
PROVIDERS: PCP Family Medicine; Referring Provider Family Medicine; Visit Provider Family Medicine
DX: Z12.5 Encounter for screening for malignant neoplasm of prostate (principal); G56.03 Carpal tunnel syndrome, bilateral upper limbs; E78.2 Mixed hyperlipidemia; M54.2 Cervicalgia; G89.29 Other chronic pain
CPT/HCPCS: 36415; 80053; 80061; 82172; 84443; 85025; G0103